=== PATIENT | female | born 1960 | race Two or more races ===

== ENCOUNTER 2025-05-07 13:03 | Emergency (ER) | payer MEDICAID, SELFPAY ==
[2025-05-07 13:05] VITALS: BMI 32.8
[2025-05-07 13:18] VITALS: BP 131/79; PULSE 108; PULSE 88; RESP 20; TEMP 38.6; O2SAT 97
--- NOTE | 2025-05-07 13:18 | XR_ITS ---
Examination: AP chest single view Technique one AP portable semiupright chest single view Date and time: 2024, 1332 hrs. Comparison 2008 Indications: Shortness of breath chest pain beginning 3 days ago. Findings: Mild prominence cardiac contour. Mild to moderate elevation right hemidiaphragm. No pneumonia or pulmonary edema. The osseous structures are demineralized. Impression: No pneumonia or pulmonary edema
--- NOTE | 2025-05-07 13:18 | EKG_ITS ---
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
[2025-05-07 13:33] LABS: Collection Type, Urine Voided
[2025-05-07 13:33] LABS: Lactate (Lactic Acid) 0.9 mMol/L (0.4-2.0)
[2025-05-07 13:38] VITALS: TEMP 38.6
[2025-05-07] MEDS: ACETAMINOPHEN 500 MG TABLET 1000 MG PO (13:38)
[2025-05-07 13:48] LABS: Basophils # (Auto) 0.0 Thou/mm3 (0.0-0.2); Basophils % (Auto) 0 % (0-2.5); Eosinophils # (Auto) 0.0 Thou/mm3 (0.0-0.5); Eosinophils % (Auto) 0 % (0-10); Hematocrit 42.2 % (36.0-46.0); Hemoglobin 13.8 g/dL (12.0-16.0); Immature Granulocytes Auto 0.02 Thou/mm3 (0.00-0.00); Lymphocytes # (Auto) 0.3 Thou/mm3 (1.0-4.8); Lymphocytes % (Auto) 4 % (10-50); Mean Corpuscular HGB Conc 32.7 g/dl (31.0-37.0); Mean Corpuscular Hemoglobin 29.0 pg (25.0-35.0); Mean Corpuscular Volume 89 fL (80-100); Monocytes # (Auto) 0.7 Thou/mm3 (0.0-0.8); Monocytes % (Auto) 9 % (0-12); Neutrophils # (Auto) 6.9 Thou/mm3 (1.8-7.7); Neutrophils % (Auto) 87 % (37-80); Nucleated Red Blood Cell # 0.00 Thou/mm3 (0.00-0.00); Nucleated Red Blood Cell % 0 /100 WBC (0); Platelet Count 237 Thou/mm3 (140-440); RDW Standard Deviation 44.1 fL (36.4-46.3); Red Blood Count 4.76 Miln/mm3 (4.00-5.20); White Blood Count 7.9 Thou/mm3 (3.6-11.0)
[2025-05-07 13:55] LABS: INR 1.1 (0.9-1.3); Partial Thromboplastin Time 25.9 Seconds (22.0-36.0); Prothrombin Time 11.5 Seconds (9.0-12.2)
[2025-05-07] MEDS: SODIUM CHLORIDE 0.9% 1000 ML 1,365 ML 1365 ML IV (13:55)
[2025-05-07 14:10] LABS: Bilirubin,Urine Negative (Negative); Blood,Urine Negative (Negative); Clarity,Urine Clear (Clear/Hazy); Color,Urine Yellow (Lt Yel-Yel); Glucose, Urine Negative (Negative); Ketones,Urine 1+ (Negative); Leukocyte Esterase,Urine Negative (Negative); Nitrite,Urine Negative (Negative); PH,Urine 6.0 (5.0-7.0); Protein,Urine 1+ (Neg - Trace); RBC,Urine 2 /hpf (0-3); Specific Gravity,Urine 1.022 (1.001-1.035); Squamous Epithelial Cell,Urine 7 /hpf (0-5); Urobilinogen,Urine Negative mg/dL (0.0-1.0); WBC,Urine 2 /hpf (0-5)
[2025-05-07 14:12] LABS: Alanine Aminotransferase 11 U/L (10-49); Albumin, Serum 4.7 gm/dL (3.4-4.8); Albumin/Globulin Ratio 1.6 (1.2-2.2); Alkaline Phosphatase 62 U/L (46-116); Anion Gap 13 (7-16); Aspartate Amino Transferase 19 U/L (0-34); BUN/Creatinine Ratio 12 Ratio (12-20); Bilirubin,Total 0.6 mg/dL (0.3-1.2); Blood Urea Nitrogen 16 mg/dL (9-23); Calcium 10.5 mg/dL (8.3-10.6); Calcium (Corrected) 10.5 mg/dL (8.5-10.1); Carbon Dioxide 21.8 mMol/L (20.0-31.0); Chloride 103 mMol/L (98-107); Creatinine (Component) 1.3 mg/dL (0.6-1.3); Estimated Creatinine Clearance 40.4 mL/min (>60); Globulin 2.9 gm/dL (2.3-3.5); Glucose 174 mg/dL (74-106); Osmolality,Calculated 280 (275-295); Potassium 3.6 mMol/L (3.4-5.1); Procalcitonin 0.04 ng/ml (0.0-0.49); Sodium 138 mMol/L (136-145); Total Protein 7.6 gm/dL (5.7-8.2); eGFR 46 See Note
--- NOTE | 2025-05-07 14:45 | PD.EDDIZZY ---
ED Dizzyness RME/HPI General Chief Complaint: Neuro Symptoms/Deficit Stated Complaint: DIZZY/ALAN/UNSTEADY ON FEET SINCE 1900 LAST NIGHT Time Seen by Provider: 05/07/25 13:17 Source: patient Arrival date/time: 05/07/25 13:03 Limitations: no limitations RME / HPI RME / HPI Narrative: Patient is a 64-year-old female who has known vertigo states this got worse yesterday around 7 PM. She states she has upcoming surgery for her left ear for her vertigo. She endorses generalized weakness and malaise additionally. Has no vision changes unilateral weakness or dysphagia. Denies any chest pain or palpitations. Has no shortness of breath. Denies any lower leg edema. Has no distal paresthesias. When patient arrived to the emergency room she had a tachycardia of the 108 bpm and a temperature of 101.4 Fahrenheit, this triggered our sepsis alert. Related Data Home Medications ?Medication ?Instructions ?Recorded ?Confirmed sitagliptin phosphate 100 mg 100 mg PO QDAY 03/05/19 tablet (Januvia) Allergies Allergy/AdvReac Type Severity Reaction Status Date / Time No Known Allergies Allergy Verified 05/07/25 13:10 Review of Systems Review of Systems Systems Reviewed: All systems reviewed, normal except as documented ED Exam General Limitations: Present no limitations General appearance: Present alert and in no apparent distress Head Head exam: Present atraumatic Eye Eye exam: Present normal appearance, PERRL and EOMI ENT ENT exam: Present normal exam, normal oropharynx and mucous membranes moist Neck Neck exam: Present normal inspection, full ROM and trachea midline Chest Chest inspection: Present normal inspection and symmetric chest wall rise Respiratory Respiratory exam: Present normal lung sounds bilaterally Cardiovascular Cardiovascular exam: Present tachycardia and normal heart sounds Abdominal Exam Abdominal exam: Present soft and normal bowel sounds Extremities Exam Extremities exam: Present normal inspection and full ROM Back Exam Back exam: Present normal inspection and full ROM Neurological Exam Neurological exam: Present alert, oriented X3 and CN II-XII intact Psychiatric Psychiatric exam: Present normal affect and normal mood Skin Skin exam: Present warm, dry, intact and normal color Course Quality Measures none Orders Category Date Time Status Bedside Blood Glucose NOW Care 05/07/25 13:18 Active Bedside COVID-19 Antigen Test NOW Care 05/07/25 13:18 Active Bedside Influenza A&B Antigen Test NOW Care 05/07/25 13:19 Active Steep Tender Q4H START 00 Care 05/07/25 13:18 Active Insert IV NOW Care 05/07/25 13:18 Active Strict Intake and Output Routine Care 05/07/25 13:18 Ordered XR chest 1V SEPSIS PROTOCOL Stat Exams 05/07/25 13:18 Completed Blood Culture (Lab) Stat Lab 05/07/25 13:54 Received CBC Stat Lab 05/07/25 13:26 Completed Comprehensive Metabolic Panel Stat Lab 05/07/25 13:26 Completed Lactate (Lactic Acid) Stat Lab 05/07/25 13:26 Completed Partial Thromboplastin Time Stat Lab 05/07/25 13:26 Completed Procalcitonin Stat Lab 05/07/25 13:26 Completed Prothrombin Time with INR Stat Lab 05/07/25 13:26 Completed Urinalysis Stat Lab 05/07/25 13:29 Completed Urine Culture Stat Lab 05/07/25 13:29 Received Acetaminophen Tab [Tylenol ES Tab] Med 05/07/25 13:20 Discontinued 1,000 mg PO X1 ONE Sodium Chloride 0.9% 1000 ml [Ns] 1,365 ml Med 05/07/25 13:18 Discontinued IV 1,365 mls/hr EKG (RT) Stat RT 05/07/25 13:18 Draft Oxygen Delivery NOW RT 05/07/25 13:18 Active Vital Signs Vital signs: Vital Signs Temperature 101.4 F H 05/07/25 13:18 Pulse Rate 88 05/07/25 13:18 Respiratory Rate 20 05/07/25 13:18 Blood Pressure 131/79 H 05/07/25 13:18 Pulse Oximetry (%) 97 05/07/25 13:18 Oxygen Delivery Method Room Air 05/07/25 13:18 Dizziness MDM Narrative MDM Narrative:: Patient is a 64-year-old female who has known vertigo states this got worse yesterday around 7 PM. She states she has upcoming surgery for her left ear for her vertigo. She endorses generalized weakness and malaise additionally. Has no vision changes unilateral weakness or dysphagia. Denies any chest pain or palpitations. Has no shortness of breath. Denies any lower leg edema. Has no distal paresthesias. When patient arrived to the emergency room she had a tachycardia of the 108 bpm and a temperature of 101.4 Fahrenheit, this triggered our sepsis alert. On exam, patient is nontoxic-appearing no visible signs distress. She has no unilateral weakness or facial droop. She has mild tachycardia 108 bpm, she has a fever of 101.4 Fahrenheit, vital signs are otherwise unremarkable. Work appears unremarkable the section of the positive screen for COVID. I believe this is the etiology of her worsening symptoms. I do believe the patient be discharged from a outpatient follow-up. She is advised to use Tylenol ibuprofen as needed for comfort. Follow-up with her surgical team regarding her vertigo. Return anytime for any worsening or emergent changes. Patient data External records reviewed:: [facility] previous records Clinical information provided by:: patient Social determinants that could affect healthcare access:: none Patient has the following chronic illnesses:: Vertigo How is presenting disease/condition affected by chronic disease/condition?: uneffected by Evaluation data The following diagnostics were reviewed and interpreted by me:: lab results and radiology exam(s) Lab and/or radiology exams considered but not ordered:: n/a Interpretation Summary: COVID-19 Medications / Prescriptions Medications or Prescriptions considered but not ordered:: n/a Medication administrations:: Medication Administration History Discontinued Medications Acetaminophen (Acetaminophen 500 Mg Tablet) 1,000 mg PO X1 ONE Stop: 05/07/25 13:21 Last Admin: 05/07/25 13:38 Dose: 1,000 mg Documented By: KIRSTIN Sodium Chloride (Ns) 1,365 mls @ 1,365 mls/hr 30 ml/kg infuse over 60 min (1365 ml) IV .Q1H ONE Stop: 05/07/25 14:17 Last Admin: 05/07/25 13:55 Dose: 1,365 mls/hr Documented By: KIRSTIN see above Consultations Consultation(s) initiated? (list below): No Diagnosis Dizziness Differential Diagnosis: benign paroxysmal positional vertigo and orthostatic hypotension Most likely diagnosis given after review of the tests above:: covid 19 Admission Indicated Admission indicated?: not indicated Admission Request Was there a request for admission?: No Disposition Plan Disposition Plan: Discharge Discharge Attestation Discharge Attestation: The patient and all family members were given an opportunity to ask questions and understood the discharge instructions. Discharge instructions specifically effects, indications for sooner follow up or return to the emergency department, and the expected course of current diagnosis. Patient condition: Stable Discharge Plan Plan Patient Disposition: HOME (Self Care) Patient condition on transfer: Stable Prescriptions/Referrals Prescriptions/Med Rec: No Action Januvia 100 mg tablet 100 mg PO QDAY Referrals: Eber Askew MD [Primary Care Provider] - In 1 week Problem List Clinical Impression: COVID-19 Patient/Caregiver Discharge Instructions Education Materials: 2019-nCoV Additional Instructions: - Use Tylenol and ibuprofen as needed for comfort. - Follow-up with your primary team regarding your ongoing vertigo. - Return to the emergency room at anytime for any worsening or emergent changes. Print Language: Persian Stand Alone Forms: Diane Award Info., Patient Portal Info Letter
[2025-05-07 14:50] VITALS: BP 118/52; PULSE 86; RESP 20; TEMP 38; O2SAT 100
== END 2025-05-07 16:42 | disposition home or self-care (01) ==
PROVIDERS: Physician Assistant Medical; Emergency Provider Emergency Medicine; PCP Family Medicine
DX: U07.1 COVID-19 (principal)
CPT/HCPCS: 36415; 71045; 80053; 81001; 83605; 84145; 85025; 85610; 85730; 87040; 87086; 87400; 87811; 93005; 99283; J7030; A9270